=== PATIENT | male | born 1955 | race Caucasian/White ===

== ENCOUNTER → 2018-06-16 | Outpatient (CLI) | payer BC ==
[~2018-06-16] MED LIST: ASPI-319 PO; OXYC-57 PO; SIMV20TA2 PO; TAMS0.4C38 PO; TELM40TA PO
--- NOTE | 2018-06-16 10:25 | DIAGNOSTIC IMAGING REPORT ---
KUB CLINICAL HISTORY: N20.0 nephrocalcinosis COMPARISON STUDY: 10/21/2015. CT abdomen and pelvis 06/05/2018 FINDINGS: The soft tissues, psoas shadows, renal outlines and intestinal gas pattern appear normal. There is no evidence for bowel obstruction. 6 mm calcification lower pole left kidney unchanged. IMPRESSION: 6 mm calcification lower pole left kidney unchanged compared to the patient's prior CT study. Otherwise negative exam. The above report was generated using voice recognition software. It may contain grammatical, syntax or spelling errors. Electronically signed by: José Marcum M.D. 06/16/2018 10:23 AM Dictated Date/Time: 06/16/2018 10:22 AM
== END | disposition home or self-care (01) ==
LOC: C.RAD1850 10:08
PROVIDERS: ATTEND Urology
DX: N20.0 Calculus of kidney (principal)

== ENCOUNTER → 2018-06-26 | Outpatient (CLI) | payer BC ==
--- NOTE | 2018-06-26 16:12 | DIAGNOSTIC IMAGING REPORT ---
KUB CLINICAL HISTORY: Nephrolithiasis. FINDINGS: 2 AP supine abdominal radiographs are compared to study dated 06/16/2018 and correlated with abdominal CT dated 06/05/2018. There is a nonobstructed abdominal bowel gas pattern. There is no radiographic evidence of nephrolithiasis on today's examination. Numerous phleboliths are observed in the pelvis. The bony structures appear intact. IMPRESSION: There is no radiographic evidence of nephrolithiasis on today's examination. Electronically signed by: Mayco Jon M.D. 06/26/2018 4:11 PM Dictated Date/Time: 06/26/2018 4:08 PM
== END | disposition home or self-care (01) ==
LOC: C.RAD 14:43
PROVIDERS: ATTEND Urology
DX: N20.0 Calculus of kidney (principal)

== ENCOUNTER 2020-06-01 09:05 | Observation (INO) ==
[2020-06-01] MEDS ORDERED: ONDANSETRON INJ 2 MG/ML 2 ML VIAL IV STA (09:26)
[2020-06-01] MEDS ORDERED: SODIUM CHLORIDE 0.9% 500 ML IV SCH (09:30)
[2020-06-01] MEDS ORDERED: LORazepam 1 MG/2 ML VIAL IV STA (09:35)
[2020-06-01 09:45] LABS: Basophils # (auto) 0.04 K/uL (0-0.2); Basophils % (auto) 0.7 %; Eosinophils # (auto) 0.16 K/uL (0-0.5); Hematocrit (blood only) 38.5 % (42-52); Immature Granulocytes # (auto) 0.01 K/uL (0.00-0.02); Immature Granulocytes % (auto) 0.2 %; Lymphocytes # (auto) 1.48 K/uL (1.2-3.4); Lymphocytes % (auto) 27.7 %; Mean Corpuscular Hemoglobin 32.3 pg (25-34); Mean Corpuscular Hgb Conc 33.8 g/dL (32-36); Mean Corpuscular Volume 95.8 fL (80-100); Mean Platelet Volume 8.8 fL (7.4-10.4); Monocytes # (auto) 0.35 K/uL (0.11-0.59); Monocytes % (auto) 6.5 %; Neutrophils # (auto) 3.31 K/uL (1.4-6.5); Neutrophils % (auto) 61.9 %; Platelet Count 208 K/uL (130-400); RDW Coefficient of Variation 12.3 % (11.5-14.5); RDW Standard Deviation 43.3 fL (36.4-46.3); Red Blood Count 4.02 M/uL (4.7-6.1); White Blood Count 5.35 K/uL (4.8-10.8)
[2020-06-01 09:51] LABS: Alanine Aminotransferase 29 U/L (12-78); Albumin Level 3.7 gm/dl (3.4-5.0); Aspartate Aminotransferase 18 U/L (15-37); BUN Creatinine Ratio 24.8 (10-20); Blood Urea Nitrogen 22 mg/dl (7-18); Calcium 8.6 mg/dl (8.5-10.1); Carbon Dioxide 24 mmol/L (21-32); Chloride 110 mmol/L (98-107); Creatinine Clr Calc Pharmacy 108.9 ml/min; Est GFR (African American) 103.7; Est GFR (Non-African American) 89.5; Glucose 138 mg/dl (70-99); Lipase 162 U/L (73-393); Sodium 140 mmol/L (136-145)
[2020-06-01 09:56] LABS: Albumin Globulin Ratio 1.1 (0.9-2); Alkaline Phosphatase 80 U/L (45-117); Bilirubin,Total 0.7 mg/dl (0.2-1); Globulin 3.4 gm/dl (2.5-4.0); Total Protein 7.1 gm/dl (6.4-8.2); Troponin I < 0.015 ng/ml (0-0.045)
[2020-06-01] MEDS ORDERED: OPTIRAY 320 125ml IV PRN (10:42)
--- NOTE | 2020-06-01 10:58 | CT Scan Report ---
CT head/brain wo con CLINICAL HISTORY: 65 years-old Male with vertigo, consider cerebellar stroke. Acute strokelike sympt oms with vertigo. TECHNIQUE: Multiple axial CT images of the head were obtained without contrast. A dose lowering tech nique was utilized adhering to the principles of ALARA. COMPARISON: CTA head and neck of same day. FINDINGS: No acute intracranial hemorrhage, midline shift, intracranial mass, hydrocephalus, territorial ischem ia or abnormal extra-axial collection. Senescent calcifications of the right lentiform nucleus. Low-l caity cerebellar tonsils. The calvarium is intact. The paranasal sinuses, mastoid air cells, and middle ear cavities are clear . IMPRESSION: No acute intracranial abnormality. ACT 112: Negative or not required by law. The above report was generated using voice recognition software. It may contain grammatical, syntax o r spelling errors. Electronically signed by: Hair Ledesma M.D. 06/01/2020 10:56 AM
--- NOTE | 2020-06-01 11:05 | CT Scan Report ---
CT angio neck with con, CT angio head w con CLINICAL HISTORY: 65 years-old Male with stroke. Acute strokelike symptoms COMPARISON STUDY: Head CT of same day TECHNIQUE: Following the IV administration of 120 mL of Optiray 320, CT angiogram of the head and nec k was performed from the aortic arch to the skull apex. Images are reviewed in the axial, sagittal, a nd coronal planes. 3-D MIPS images are created and assessed. IV contrast was administered without com plication. All measurements were calculated based on NASCET criteria. A dose lowering technique was utilized adhering to the principles of ALARA. CT DOSE: 1243.99 mGy.cm FINDINGS: The opacified imaged pulmonary arterial tree is unremarkable. Three-vessel morphology of aortic arch demonstrates mild to moderate mixed plaque, notably at the origin of the left subclavian artery which appears patent. Patent common carotid arteries. Moderate mixed plaque of the carotid bulbs and proxi mal internal carotid arteries results in less than 50% stenosis bilaterally. Calcified plaque of the cavernous and supraclinoid segments without high-grade stenosis. Middle and anterior cerebral arterie s are patent with areas of mild multifocal luminal narrowing. Vertebral arteries are codominant and a re also widely patent. Basilar artery is patent. Mild to moderate focal area of luminal narrowing inv olves the P1 segment of the left posterior cerebral artery, image 69 series 5. origin of the ri ght posterior cerebral artery which also appears patent with areas of mild luminal narrowing. No aneu rysm, dissection, high-grade stenosis or proximal branch occlusion. Cerebral venous sinuses are paten t. Slightly hypoplastic right transverse sinus. No abnormal intracranial enhancement. Subpleural bleb formation of the lung apices. No pneumothorax. Nonspecific mildly prominent paratracheal lymph nodes. Subcentimeter complex left thyroid nodule. IMPRESSION: 1. No aneurysm, dissection, high-grade stenosis or proximal branch occlusion identified. 2. Atherosclerotic vascular disease with multifocal predominantly mild and mild to moderate luminal n arrowing as detailed above. ACT 112: Negative or not required by law. The above report was generated using voice recognition software. It may contain grammatical, syntax o r spelling errors. Electronically signed by: Hair Ledesma M.D. 06/01/2020 11:04 AM
[2020-06-01] MEDS ORDERED: MECLIZINE HCL 25 MG TAB PO STA (12:28)
[2020-06-01] MEDS ORDERED: methylPREDNISolone 125 MG/2 ML VIAL IV STA (12:28)
[2020-06-01] MEDS ORDERED: SODIUM CHLORIDE 0.9% 1000ML 1,000 ML IV SCH (12:45)
--- NOTE | 2020-06-01 12:50 | History & Physical Report ---
Date of Service June 01, 2020 Assessment & Plan (1) Vertigo: Patient be observed in our facility. Patient given scopolamine. Meclizine as needed and Lorazepam. He will be continued with hydration and be given antiemetics as needed. MRI scan will be undertaken to evaluate for small areas of stroke which could be associated vertigo that may not be seen on initial CT scan CT head,CT angiogram brain 06/01/2020 IMPRESSION: 1. No aneurysm, dissection, high-grade stenosis or proximal branch occlusion identified. 2. Atherosclerotic vascular disease with multifocal predominantly mild and mild to moderate luminal narrowing (2) Hypertension: Patient be continued on telmisartan or pharmacy appropriate substitute. Secondary disease prevention aspirin simvastatin will be continued (3) Dyslipidemia: Patient is typically on simvastatin History of Present Illness Primary Care Provider: Miguel Bolivar DO Patient presented after having vertiginous symptoms after making breakfast this morning. There is vertiginous symptoms have been persistent and significant while in the ER to the point where he is vomited. The ER the patient was given lorazepam meclizine methylprednisolone and Zofran as well as IV fluids without help. Patient cannot stand safely and will be observed in our facility. He is typically on very few home medications denies recent illness or trauma Allergies Allergy/AdvReac Type Severity Reaction Status Date / Time Ada AdvReac Unknown Uncoded 06/01/20 09:46 Home Medications Home Medications Medication Instructions Recorded Confirmed Type aspirin [Aspirin Low Dose] 81 mg PO DAILY 06/01/20 06/01/20 History cetirizine [Zyrtec] 10 mg PO DAILY PRN 06/01/20 06/01/20 History simvastatin 20 mg PO DAILY 06/01/20 06/01/20 History telmisartan 40 mg PO DAILY 06/01/20 06/01/20 History Past Med/Surg History Medical History (Updated 06/01/20 @ 12:47 by Clif Copeland MD) Dyslipidemia Social History Preferred Language: Qatari Communication Ability: Effective Ceiling Cleaner Required: No Beliefs That Will Affect Care: None Current Living Situation: Spouse Other Information That Helps Us Care for You: No Feels Safe at Home: Yes Safety Concerns: Feels Safe At This Time Smoking Status: Never smoker Hx Alcohol Use: No Hx Substance Use: No Review of Systems Review of Systems: Mild distress and fatigue no headache, blurry or double vision no speech or swallowing issues no chest pain, pressure or palpitations no shortness of breath, cough or wheezes no abdominal pain, nausea or vomiting, diarrhea or constipation no dysuria, hematuria or frequency no focal joint pain or swelling no back pain, CVA tenderness or radicular pain no bruising, bleeding or rashes no focal signs of weakness or numbness or altered sensation no complaints or anxiety or depression. Physical Exam Physical Exam: The patient appeared well nourished and normally developed. Vital signs as documented. Head exam is normocephalic atraumatic no scleral icterus Neck is without JVD, thyromegaly, or carotid bruits. Lungs are clear to auscultation, no focal loss of breath sounds Cardiac exam, Rhythm is regular.. No murmurs, rubs or gallops. Abdominal exam reveals normal bowel sounds, soft non tender, no masses Extremities are nonedematous and both pedal pulses are normal. Neurologic exam is alert and oriented, no focal loss of strength or sensation Skin is without bruises or rashes Psychologically is without concerns for anxiety or depression Results & Data Results & Data ([facility]) Vital Signs (Past 12 Hours) Vital Signs Temp Pulse Pulse Resp BP BP Pulse Ox 06/01/20 12:41 59 L 18 146/73 H 96 06/01/20 11:50 58 L 18 117/67 98 06/01/20 10:54 64 16 141/85 H 97 06/01/20 09:09 98.2 F 56 L 18 134/80 100 PG Care Time/CCT Total # of Minutes Spent Total Time Spent with Patient: Total time spent is greater than 50% in coordination of care (as documented) at patient's floor/unit and/or counseling patient: Coding Level of Care Code 18437 OBS Care - Level 3 Diagnoses Vertigo R42 Hypertension I10 Dyslipidemia E78.5
--- NOTE | 2020-06-01 12:51 | History & Physical Report ---
Date of Service June 01, 2020 Assessment & Plan (1) Vertigo: Patient be observed in our facility. Patient given scopolamine. Meclizine as needed and Lorazepam. He will be continued with hydration and be given antiemetics as needed. 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 He does work outside frequently. He is never been tested or treated for Lyme disease. We will add a Lyme titer to his laboratories in the morning as well as morning lipids CT head,CT angiogram brain 06/01/2020 IMPRESSION: 1. No aneurysm, dissection, high-grade stenosis or proximal branch occlusion identified. 2. Atherosclerotic vascular disease with multifocal predominantly mild and mild to moderate luminal narrowing (2) Hypertension: Patient be continued on telmisartan or pharmacy appropriate substitute. Secondary disease prevention aspirin simvastatin will be continued (3) Dyslipidemia: Patient is typically on simvastatin (4) DVT prophylaxis: DVT prevention is early ambulation and SCDs Patient is a full code History of Present Illness Primary Care Provider: Miguel Bolivar DO Patient presented after having vertiginous symptoms after making breakfast this morning. The patient woke up in normal condition about 30 minutes later he was making breakfast actually set at breakfast table and then began feeling warm w ith a warm flushed and nauseous with ensuing vomiting when he walked to go to the bathroom to vomit he noticed the room was spinning. There is vertiginous symptoms have been persistent and significant while in the ER to the point where he is vomited. The ER the patient was given lorazepam meclizine methylprednisolone and Zofran as well as IV fluids without help. Patient cannot stand safely and will be observed in our facility. He is typically on very few home medications denies recent illness or trauma. The family recently had a where people visited from out of town but everyone employed social distancing and wear a mask known was sick at the event Allergies Allergy/AdvReac Type Severity Reaction Status Date / Time Ada AdvReac Unknown Uncoded 06/01/20 09:46 Home Medications Home Medications Medication Instructions Recorded Confirmed Type aspirin [Aspirin Low Dose] 81 mg PO DAILY 06/01/20 06/01/20 History cetirizine [Zyrtec] 10 mg PO DAILY PRN 06/01/20 06/01/20 History simvastatin 20 mg PO DAILY 06/01/20 06/01/20 History telmisartan 40 mg PO DAILY 06/01/20 06/01/20 History Past Med/Surg History Social History Preferred Language: Iraqi Communication Ability: Effective Mopper Required: No Beliefs That Will Affect Care: None Current Living Situation: Spouse Other Information That Helps Us Care for You: No Feels Safe at Home: Yes Safety Concerns: Feels Safe At This Time Smoking Status: Never smoker Hx Alcohol Use: No Hx Substance Use: No Review of Systems Review of Systems: Mild distress and fatigue no headache, blurry or double vision He does have the sensation of spinning when he moves his head too fast no speech or swallowing issues no chest pain, pressure or palpitations no shortness of breath, cough or wheezes no abdominal pain, nausea or vomiting, diarrhea or constipation no dysuria, hematuria or frequency no focal joint pain or swelling no back pain, CVA tenderness or radicular pain no bruising, bleeding or rashes no focal signs of weakness or numbness or altered sensation no complaints or anxiety or depression. Physical Exam Physical Exam: The patient appeared well nourished and normally developed. Vital signs as documented. Head exam is normocephalic atraumatic no scleral icterus Nystagmus is noted laterally looking to the left and to the right and symptoms are reproduced with head movement Neck is without JVD, thyromegaly, or carotid bruits. Lungs are clear to auscultation, no focal loss of breath sounds Cardiac exam, Rhythm is regular.. No murmurs, rubs or gallops. Abdominal exam reveals normal bowel sounds, soft non tender, no masses Extremities are nonedematous and both pedal pulses are normal. Neurologic exam is alert and oriented, no focal loss of strength or sensation Skin is without bruises or rashes Psychologically is without concerns for anxiety or depression Results & Data Results & Data ([facility]) Vital Signs (Past 12 Hours) Vital Signs Temp Pulse Pulse Resp BP BP Pulse Ox 06/01/20 12:41 59 L 18 146/73 H 96 06/01/20 11:50 58 L 18 117/67 98 06/01/20 10:54 64 16 141/85 H 97 06/01/20 09:09 98.2 F 56 L 18 134/80 100 PG Care Time/CCT Total # of Minutes Spent Total Time Spent with Patient: Total time spent is greater than 50% in coordination of care (as documented) at patient's floor/unit and/or counseling patient: Coding Level of Care Code 14101 OBS Care - Level 2 Diagnoses Vertigo R42 Hypertension I10 Dyslipidemia E78.5 DVT prophylaxis Z29.9
[2020-06-01] MEDS ORDERED: PROMETHAZINE HCL 12.5 MG in SODIUM CHLORIDE 0.9% 50 ML IV PRN (14:11)
[2020-06-01] MEDS ORDERED: ONDANSETRON INJ 2 MG/ML 2 ML VIAL IV PRN (14:11)
[2020-06-01] MEDS ORDERED: LORazepam 0.5 MG/1 ML VIAL IV PRN (14:11)
[2020-06-01] MEDS: SODIUM CHLORIDE 0.9% 1000ML 1,000 ML IV SCH ×2 (14:20→22:32)
--- NOTE | 2020-06-01 14:22 | Emergency Department Note ---
History of Present Illness General Chief complaint: Vomiting Stated complaint: dizzy/vomit Time Seen by Provider: 06/01/20 09:21 Source: patient, family, EMS and RN notes reviewed Mode of arrival: EMS Limitations: no limitations History of Present Illness Provider complaint: Dizzy, vomiting Maximum Pain Intensity: 0 This patient is a 65-year-old male who presents to the emergency department with complaints of dizziness nausea and vomiting. Patient states he made himself breakfast and was in his usual state of health this morning. He sat down and developed a flushed feeling and nausea. He went to the bathroom and vomited. He had a spinning sensation and dizziness thereafter. Patient's called the ambulance and he was transported to our facility. The patient denies any histo ry of vertigo. He denies any recent illnesses. He denies any head injury, chest pain, shortness of breath. Home Medications Home Medications Medication Instructions Recorded Confirmed Type aspirin [Aspirin Low Dose] 81 mg PO DAILY 06/01/20 06/01/20 History cetirizine [Zyrtec] 10 mg PO DAILY PRN 06/01/20 06/01/20 History simvastatin 20 mg PO DAILY 06/01/20 06/01/20 History telmisartan 40 mg PO DAILY 06/01/20 06/01/20 History Allergies Allergy/AdvReac Type Severity Reaction Status Date / Time Ada AdvReac Unknown Uncoded 06/01/20 09:46 Past Med/Surg History Medical History Dyslipidemia Social History Preferred Language: Tajik Communication Ability: Effective Oven Attendant Required: No Beliefs That Will Affect Care: None Current Living Situation: Spouse Other Information That Helps Us Care for You: No Feels Safe at Home: Yes Safety Concerns: Feels Safe At This Time Smoking Status: Never smoker Hx Alcohol Use: No Hx Substance Use: No Review of Systems See HPI for pertinent positives & negatives. and A total of 10 systems reviewed and were otherwise negative Physical Exam Vital Signs Vital Signs - 24 hr 06/01/20 09:09 06/01/20 10:54 06/01/20 11:50 Temperature 36.8 C Temperature Source Oral Pulse Rate 56 L Pulse Rate [Finger] 64 58 L Respiratory Rate 18 16 18 Respiratory Effort / Characteristics Non-Labored Non-Labored Non-Labored Respiratory Depth Normal Normal Normal Blood Pressure 134/80 Blood Pressure [Right Arm] 141/85 H 117/67 Blood Pressure Mean 98 Blood Pressure Mean [Right Arm] 103 83 Pulse Oximetry 100 97 98 Oxygen Delivery Method Room Air Room Air Room Air Sepsis Recent Fever Within 48 Hours No Sepsis New/Unexplained Change in Mental Status No Sepsis Action Taken by Nursing No Action Required 06/01/20 12:41 Temperature Temperature Source Pulse Rate Pulse Rate [Finger] 59 L Respiratory Rate 18 Respiratory Effort / Characteristics Respiratory Depth Blood Pressure Blood Pressure [Right Arm] 146/73 H Blood Pressure Mean Blood Pressure Mean [Right Arm] 97 Pulse Oximetry 96 Oxygen Delivery Method Room Air Sepsis Recent Fever Within 48 Hours Sepsis New/Unexplained Change in Mental Status Sepsis Action Taken by Nursing Vital signs reviewed. General: Well-appearing 65 yo male, in no significant distress. HEENT: No scleral icterus, PERRLA, neck supple. Atraumatic. Cardiovascular: Regular rate and rhythm, no extra sounds. Pulmonary: Clear to auscultation bilaterally, normal work of breathing. Abdomen: Soft, nontender, nondistended, positive bowel sounds. Musculoskeletal: Atraumatic, no peripheral edema. Neurologic: Patient awake alert and oriented x 3, positive horizontal nystagmus, equal strength in all 4 extremities. Cranial nerves 2 through 12 grossly intact. Skin: Warm, dry, no rash Course Administered Medications Discontinued Medications Sodium Chloride (Nss) 500 mls @ 999 mls/hr IV .Q31M NATHAN Stop: 06/01/20 10:00 Last Infusion: 06/01/20 10:13 Dose: 0 mls/hr Documented by: [id number] Admin: 06/01/20 09:42 Dose: 999 mls/hr Documented by: [id number] Lorazepam (Ativan) 1 mg in 2 mls @ 2 mls/min IV NOW STA Stop: 06/01/20 09:36 Last Admin: 06/01/20 09:42 Dose: 2 mls/min Documented by: [id number] Ioversol (Optiray 320 125ml) 120 ml IV ONCE PRN PRN Reason: Interaction Checking Stop: 06/05/20 10:41 Last Admin: 06/01/20 10:42 Dose: 120 ml Documented by: [id number] Meclizine HCl (Antivert) 25 mg PO NOW STA Stop: 06/01/20 12:29 Last Admin: 06/01/20 12:37 Dose: 25 mg Documented by: [id number] Methylprednisolone (Solumedrol) 125 mg IV NOW STA Stop: 06/01/20 12:29 Last Admin: 06/01/20 12:37 Dose: 125 mg Documented by: [id number] Ondansetron HCl (Zofran) 4 mg IV NOW STA Stop: 06/01/20 09:27 Last Admin: 06/01/20 09:40 Dose: 4 mg Documented by: [id number] Medical Decision Making Differential Diagnosis Differential diagnosis: Etiologies such as benign positional vertigo, labrynthitis, dehydration, hypovolemia, anemia, tumor, infection, hypoglycemia, electrolyte abnormalities, cardiac sources, toxicological sources, central neurologic process, as well as others were entertained. Medical Records Attestation: I reviewed the patient's medical records. Home Medications Current Medication List: was personally reviewed by me Laboratory Data Attestation: I reviewed the patient's lab results. Result diagrams: 06/01/20 09:13 06/01/20 09:13 Lab Results 06/01/20 06/01/20 Range/Units 09:13 09:13 WBC 5.35 (4.8-10.8) K/uL RBC 4.02 L (4.7-6.1) M/uL Hgb 13.0 L (14.0-18.0) g/dL Hct 38.5 L (42-52) % MCV 95.8 (80-100) fL MCH 32.3 (25-34) pg MCHC 33.8 (32-36) g/dL RDW Std Deviation 43.3 (36.4-46.3) fL RDW Coeff of Kumar 12.3 (11.5-14.5) % Plt Count 208 (130-400) K/uL MPV 8.8 (7.4-10.4) fL Immature Gran % (Auto) 0.2 % Neut % (Auto) 61.9 % Lymph % (Auto) 27.7 % [place] % (Auto) 6.5 % Eos % (Auto) 3.0 % Baso % (Auto) 0.7 % Neut # (Auto) 3.31 (1.4-6.5) K/uL Lymph # (Auto) 1.48 (1.2-3.4) K/uL [place] # (Auto) 0.35 (0.11-0.59) K/uL Eos # (Auto) 0.16 (0-0.5) K/uL Baso # (Auto) 0.04 (0-0.2) K/uL Immature Gran # (Auto) 0.01 (0.00-0.02) K/uL Sodium 140 (136-145) mmol/L Potassium 4.0 (3.5-5.1) mmol/L Chloride 110 H (98-107) mmol/L Carbon Dioxide 24 (21-32) mmol/L Anion Gap 6.0 (3-11) BUN 22 H (7-18) mg/dl Creatinine 0.88 (0.6-1.4) mg/dl Est Cr Clr Drug Dosing 108.9 ml/min Est GFR ( Amer) 103.7 Est GFR (Non-Af Amer) 89.5 BUN/Creatinine Ratio 24.8 H (10-20) Glucose 138 H (70-99) mg/dl Calcium 8.6 (8.5-10.1) mg/dl Total Bilirubin 0.7 (0.2-1) mg/dl AST 18 (15-37) U/L ALT 29 (12-78) U/L Alkaline Phosphatase 80 (45-117) U/L Troponin I < 0.015 (0-0.045) ng/ml Total Protein 7.1 (6.4-8.2) gm/dl Albumin 3.7 (3.4-5.0) gm/dl Globulin 3.4 (2.5-4.0) gm/dl Albumin/Globulin Ratio 1.1 (0.9-2) Lipase 162 (73-393) U/L Imaging Data Radiologist's Impression: CT head/brain wo con CLINICAL HISTORY: 65 years-old Male with vertigo, consider cerebellar stroke. Acute strokelike symptoms with vertigo. TECHNIQUE: Multiple axial CT images of the head were obtained without contrast. A dose lowering technique was utilized adhering to the principles of ALARA. COMPARISON: CTA head and neck of same day. FINDINGS: No acute intracranial hemorrhage, midline shift, intracranial mass, hydrocephalus, territorial ischemia or abnormal extra-axial collection. Senescent calcifications of the right lentiform nucleus. Low-lying cerebellar tonsils. The calvarium is intact. The paranasal sinuses, mastoid air cells, and middle ear cavities are clear. IMPRESSION: No acute intracranial abnormality. ACT 112: Negative or not required by law. The above report was generated using voice recognition software. It may contain grammatical, syntax or spelling errors. Electronically signed by: Hair Ledesma M.D. 06/01/2020 10:56 AM Dictated: 06/01/20 1052 Transcribed: 06/01/[address] angio neck with con, CT angio head w con CLINICAL HISTORY: 65 years-old Male with stroke. Acute strokelike symptoms COMPARISON STUDY: Head CT of same day TECHNIQUE: Following the IV administration of 120 mL of Optiray 320, CT angiogram of the head and neck was performed from the aortic arch to the skull apex. Images are reviewed in the axial, sagittal, and coronal planes. 3-D MIPS images are created and assessed. IV contrast was administered without complication. All measurements were calculated based on NASCET criteria. A dose lowering technique was utilized adhering to the principles of ALARA. CT DOSE: 1243.99 mGy.cm FINDINGS: The opacified imaged pulmonary arterial tree is unremarkable. Three-vessel morphology of aortic arch demonstrates mild to moderate mixed plaque, notably at the origin of the left subclavian artery which appears patent. Patent common carotid arteries. Moderate mixed plaque of the carotid bulbs and proximal internal carotid arteries results in less than 50% stenosis bilaterally. Calcified plaque of the cavernous and supraclinoid segments without high-grade stenosis. Middle and anterior cerebral arteries are patent with areas of mild multifocal luminal narrowing. Vertebral arteries are codominant and are also widely patent. Basilar artery is patent. Mild to moderate focal area of luminal narrowing involves the P1 segment of the left posterior cerebral artery, image 69 series 5. origin of the right posterior cerebral artery which also appears patent with areas of mild luminal narrowing. No aneurysm, dissection, high-grade stenosis or proximal branch occlusion. Cerebral venous sinuses are patent. Slightly hypoplastic right transverse sinus. No abnormal intracranial enhancement. Subpleural bleb formation of the lung apices. No pneumothorax. Nonspecific mildly prominent paratracheal lymph nodes. Subcentimeter complex left thyroid nodule. IMPRESSION: 1. No aneurysm, dissection, high-grade stenosis or proximal branch occlusion identified. 2. Atherosclerotic vascular disease with multifocal predominantly mild and mild to moderate luminal narrowing as detailed above. ACT 112: Negative or not required by law. The above report was generated using voice recognition software. It may contain grammatical, syntax or spelling errors. Electronically signed by: Hair Ledesma M.D. 06/01/2020 11:04 AM Dictated: 06/01/20 1057 Transcribed: 06/01/[address] angio neck with con, CT angio head w con CLINICAL HISTORY: 65 years-old Male with stroke. Acute strokelike symptoms COMPARISON STUDY: Head CT of same day TECHNIQUE: Following the IV administration of 120 mL of Optiray 320, CT angiogram of the head and neck was performed from the aortic arch to the skull apex. Images are reviewed in the axial, sagittal, and coronal planes. 3-D MIPS images are created and assessed. IV contrast was administered without complication. All measurements were calculated based on NASCET criteria. A dose lowering technique was utilized adhering to the principles of ALARA. CT DOSE: 1243.99 mGy.cm FINDINGS: The opacified imaged pulmonary arterial tree is unremarkable. Three-vessel morphology of aortic arch demonstrates mild to moderate mixed plaque, notably at the origin of the left subclavian artery which appears patent. Patent common carotid arteries. Moderate mixed plaque of the carotid bulbs and proximal internal carotid arteries results in less than 50% stenosis bilaterally. Calcified plaque of the cavernous and supraclinoid segments without high-grade stenosis. Middle and anterior cerebral arteries are patent with areas of mild multifocal luminal narrowing. Vertebral arteries are codominant and are also widely patent. Basilar artery is patent. Mild to moderate focal area of luminal narrowing involves the P1 segment of the left posterior cerebral artery, image 69 series 5. origin of the right posterior cerebral artery which also appears patent with areas of mild luminal narrowing. No aneurysm, dissection, high-grade stenosis or proximal branch occlusion. Cerebral venous sinuses are patent. Slightly hypoplastic right transverse sinus. No abnormal intracranial enhancement. Subpleural bleb formation of the lung apices. No pneumothorax. Nonspecific mildly prominent paratracheal lymph nodes. Subcentimeter complex left thyroid nodule. IMPRESSION: 1. No aneurysm, dissection, high-grade stenosis or proximal branch occlusion identified. 2. Atherosclerotic vascular disease with multifocal predominantly mild and mild to moderate luminal narrowing as detailed above. ACT 112: Negative or not required by law. The above report was generated using voice recognition software. It may contain grammatical, syntax or spelling errors. Electronically signed by: Hair Ledesma M.D. 06/01/2020 11:04 AM Dictated: 06/01/201056 Transcribed: 06/01/201056 ECG Data Attestation: I personally reviewed and interpreted this ECG as follows: Indication: + vomiting and + other (vertigo) Rate (beats per minute): 53 Rhythm: + sinus bradycardia ECG Intervals/blocks: + Normal QT ECG [place]: + Normal ECG ST segments: + Normal ST segments ECG Findings: no PACs and no PVCs Blood Pressure Blood Pressure Findings: Elevated blood pressure Blood Pressure Disposition: elevated BP felt to be situational MDM Narrative This patient was evaluated and appeared to be in some discomfort. Patient's physical examination is consistent with a benign positional vertigo however with the lack of history and sudden onset, cerebellar infarct is concerning. Patient began retching shortly after his physical exam. IV access was obtained and laboratory work was drawn. The patient was given IV Zofran and IV Ativan. CTA of the head and neck was performed and is read as above. There is no evidence of acute infarct. Study is significant for atherosclerotic vascular disease with multifocal predominantly mild and mild to moderate luminal narrowing. On my reevaluation of the patient, he was feeling improved and tolerated a p.o. fluid trial. Nursing attempted to stand him at the bedside however he became acutely dizzy and lost his balance. Patient was then given 125 mg of IV Solu- Medrol, 25 mg of p.o. meclizine and IV normal saline solution. Case was discussed with Dr. Copeland of the hospitalist service who will evaluate the patient for further management. Patient and are aware of the plan and agree. Impression & Plan Vertigo Discharge Plan Visit Data *Final* Discharge Date/Time: 06/01/20 13:56 Chief Complaint: Vomiting Stated Complaint: dizzy/vomit ED Provider: Keyana Mendez Discharge Problem: Vertigo Patient Disposition: Admitted As Inpatient Discharge Instructions Interventions: ED Discharge Assessment Last Done: 06/01/20 13:56
[2020-06-01] MEDS ORDERED: Nursing to Pharmacy Communication SCH (14:30)
[2020-06-01] MEDS: MECLIZINE HCL 25 MG TAB PO SCH ×2 (14:43→20:15)
[2020-06-01] MEDS ORDERED: SCOPOLAMINE 1.5 MG TDSY TD SCH (15:00)
[2020-06-01] MEDS: CHECK SCOPOLAMINE PATCH PLACEMENT SCH (15:52)
[2020-06-01] MEDS ORDERED: ACETAMINOPHEN 325 MG TAB PO PRN (19:46)
[2020-06-02] MEDS: CHECK SCOPOLAMINE PATCH PLACEMENT SCH ×2 (00:32→07:32)
[2020-06-02 06:51] LABS: BUN Creatinine Ratio 19.6 (10-20); Calcium 8.5 mg/dl (8.5-10.1); Creatinine Clr Calc Pharmacy 114.1 ml/min; Est GFR (African American) 105.7; Est GFR (Non-African American) 91.2; Potassium 4.3 mmol/L (3.5-5.1)
--- NOTE | 2020-06-02 07:26 | Magnetic Resonance Report ---
MRI OF THE BRAIN WITHOUT CONTRAST CLINICAL HISTORY: Evaluate for small cva, brainstem intractable n/v. COMPARISON STUDY: Head CT and CTA of the head June 01, 2020. TECHNIQUE: Utilizing a 1.5 Yolanda magnet and dedicated coil, multiplanar, multiecho imaging of the bra in was performed without IV contrast. FINDINGS: There are no foci of restricted diffusion to suggest acute infarct. No acute intracranial h emorrhage, midline shift or mass effect is present. Ventricular system is normal. Basilar cisterns ar e patent. There are no extra axial collections. No intracranial masses identified on this unenhanced examination. Flow-voids for the major intracranial vessels are present. There is no significant paren chymal signal abnormality. Calvarial signal is normal. IMPRESSION: No acute intracranial findings. Unremarkable unenhanced MRI of the brain. ACT 112: Negative or not required by law. Electronically signed by: Kel Chambers M.D. 06/02/2020 7:24 AM
[2020-06-02] MEDS: SODIUM CHLORIDE 0.9% 1000ML 1,000 ML IV SCH (07:33)
[2020-06-02 08:55] LABS: Lyme Ab IgG w/WB Rflx Negative (Negative); Lyme Ab IgM w/WB Rflx Negative (Negative)
[2020-06-02] MEDS ORDERED: SIMVASTATIN 20 MG TAB PO SCH (09:00)
[2020-06-02] MEDS ORDERED: TELMISARTAN 40 MG TAB PO SCH (09:00)
[2020-06-02] MEDS ORDERED: ASPIRIN 81 MG ECTAB PO SCH (09:00)
--- NOTE | 2020-06-02 15:39 | Discharge Summary ---
Date of Service June 02, 2020 Admission HPI Per Admitting Provider Patient presented after having vertiginous symptoms after making breakfast this morning. The patient woke up in normal condition about 30 minutes later he was making breakfast actually set at breakfast table and then began feeling warm with a warm flushed and nauseous with ensuing vomiting when he walked to go to the bathroom to vomit he noticed the room was spinning. There is vertiginous symptoms have been persistent and significant while in the ER to the point where he is vomited. The ER the patient was given lorazepam meclizine methylprednisolone and Zofran as well as IV fluids without help. Patient cannot stand safely and will be observed in our facility. He is typically on very few home medications denies recent illness or trauma. The family recently had a where people visited from out of town but everyone employed social distancing and wear a mask known was sick at the event Principal Diagnosis Acute vertigo, likely labrynthitis Discharge Exam Constitutional WD/WN, vitals as above Eyes PERRL, conjunctivae normal, anicteric sclerae ENMT external ear and nose normal, oropharynx normal Neck trachea midline, no thyromegaly Respiratory normal respiratory effort, lungs clear to auscultation Cardiovascular RRR, no murmur, no edema Gastrointestinal (Abdomen) normal bowel sounds, soft, nontender, no hepatosplenomegaly Musculoskeletal no cyanosis or clubbing, extremities motor strength 5/5 Skin no rashes, warm and dry Neurologic patellar DTR's 2+ bilat, sensation intact and PERRL, EOMI, accommodation nl, no face palsy, no dysarthria Psychiatric A+Ox3, euthymic affect Lymphatic no cervical or axillary lymphadenopathy Discharge Data Allergies Allergy/AdvReac Type Severity Reaction Status Date / Time Iodinated Contrast Media Allergy Unknown Verified 06/01/20 14:27 Ada AdvReac Unknown Uncoded 06/01/20 09:46 Consultations 06/01/20 13:08 ED Decision to Admit Stat Ordered Studies 06/01/20 09:36 CT head/brain wo con Stat 06/01/20 09:37 CT angio head w con Stat CT angio neck with con Stat 06/01/20 14:11 MR brain wo con Routine Hospital Course (1) Vertigo: Patient be observed in our facility. Patient given scopolamine. Meclizine as needed and Lorazepam. He will be continued with hydration and be given antiemetics as needed. MRI brain: no evidence of stroke or tumor that would explain the symptoms CT head,CT angiogram brain 06/01/2020 IMPRESSION: 1. No aneurysm, dissection, high-grade stenosis or proximal branch occlusion identified. 2. Atherosclerotic vascular disease with multifocal predominantly mild and mild to moderate luminal narrowing ear exam: TM normal, no signs of otitis media, no obvious fluid behind either ear no hearing loss on exam, does not complain of hearing loss evaluated by physical therapy, symptoms could NOT be reproduced with Lew maneuvers, thus benign positional vertigo highly unlikely given the above work up, most logical explanation would be acute labrynthitis, perhaps viral infection symptoms improved greatly will send home on Scopolamine patch for two more days, then remove, can use Meclizine PRN follow up with PCP discussed with patient and , all questions answered (2) Hypertension: Patient be continued on telmisartan Secondary disease prevention aspirin simvastatin will be continued (3) Dyslipidemia: Patient is typically on simvastatin Total Time Total Time Spent Total Time Spent (In Minutes): 31 minutes Total Time Includes: Examination of the Patient, Discharge Planning, Medication Reconciliation and Communication With Other Providers (physical therapy) Discharge Plan Discharge Items Patient Disposition: Home - Self-Care Reason For Visit: INTRACTABLE VERTIGO Discharge Diagnosis: Acute vertigo Condition on Discharge: Good Goals: use meclizine as needed, slowly increase activity as tolerated follow up with Dr. Bolivar Activity: Per Instructions section Lifting: Gradually increase as tolerated Bathing: No limitations Sexual Activity: When tolerated Exercise/Sports: Gradually increase as tolerated Driving/Machine Use: don't drive for one week Weightbearing: Full weightbearing Non-emergency contact: Primary Care Provider Call non-emergency contact if: you have any medication questions and your symptoms worsen Follow-up/Referrals: Miguel Bolivar, [Primary Care Provider] - (one week) Diet: Heart Healthy Addtl Attending Provider Instructions: Medications: - SCOPOLAMINE: leave patch on until Tuesday at noon, then you can remove and discard - MECLIZINE: take 25mg (two tablets) as needed for any vertigo, can take with the scopolamine patch, can take every 8 hours Vertigo, dizziness MRI brain negative for tumor or stroke Lew maneuvers did not reproduce symptoms which argues strongly against Benign positional vertigo no ringing in ears, no hearing loss, normal inner ear exam argues against Meniere's disease most likely etiology is labrynthitis which is self limiting, could be a viral infection recommend treating symptoms as needed, getting rest, stay well hydrated please follow up with Dr. Bolivar in one week Pending Studies at Discharge: No Stand-Alone Forms: My [facility], Smoking Cessation Medications and DC Order Prescriptions: New scopolamine base [Transderm-Scop] 1 mg over 3 days Patch 3 Day 1.5 mg transdermal Q72H Qty: 1 RF: 0 meclizine 12.5 mg tablet 25 mg PO TID PRN (Reason: dizziness) Qty: 20 RF: 1 Continued cetirizine [Zyrtec] 10 mg Tablet 10 mg PO DAILY PRN (Reason: Allergy Symptoms) RF: 0 aspirin [Aspirin Low Dose] 81 mg Tablet,Delayed Release (Dr/Ec) 81 mg PO DAILY RF: 0 simvastatin 20 mg tablet 20 mg PO DAILY RF: 0 telmisartan 40 mg tablet 40 mg PO DAILY RF: 0 Discharge Orders: Discharge Order (Routine); Ordered 06/02/20 Ordered By: Trent Menezes Admission Data Admit Date/Time: 06/01/20 12:55 Attending Provider: Trent Menezes Admit Provider: Clif Copeland Primary Care Provider: Miguel Bolivar Other Providers: Clif Copeland Other Interventions: Discharge Summary Assessment (RN) Last Done: 06/02/20 16:45 DC Date/Time DO NOT enter until pt leaves facility: 06/02/20 17:31 Coding Level of Care Code 63770 OBS Care - Discharge Diagnoses Vertigo R42 Hypertension I10 Dyslipidemia E78.5
--- NOTE | 2020-06-03 05:49 | Electrocardiogram Report ---
Test Reason : Blood Pressure : / mmHG Vent. Rate : 053 BPM Atrial Rate : 053 BPM P-R Int : 162 ms QRS Dur : 086 ms QT Int : 484 ms P-R-T Axes : 024 036 039 degrees QTc Int : 454 ms Sinus bradycardia Otherwise normal ECG When compared with ECG of 07-JUN-2018 12:08, Premature ventricular complexes are no longer Present Confirmed by Reyes Bloom ([id number]) on 06/03/2020 5:49:47 AM Referred By: REFERRED SELF Confirmed By:Reyes Bloom
== END 2020-06-02 17:31 | disposition home or self-care (01) ==
LOC: ED 09:05 → 2W 09:05 → SUATTDRO 12:55 → 2W 13:56

== ENCOUNTER 2023-10-28 09:45 | Observation (INO) ==
--- NOTE | 2023-10-12 10:20 | PAT Medication Instructions ---
Medication Instructions Date of Service October 12, 2023 Home Medications Medication Instructions Recorded meclizine 12.5 mg tablet 25 mg (2 x 12.5 mg) PO TID PRN 06/02/20 dizziness #20 tabs aspirin 81 mg tablet,delayed release (Tessa Low Dose Aspirin) 81 mg PO DAILY cetirizine 10 mg tablet (Zyrtec) 10 mg PO DAILY PRN Allergy Symptoms telmisartan 40 mg tablet 40 mg PO QAM meclizine 12.5 mg tablet 25 mg (2 x 12.5 mg) PO TID PRN dizziness atorvastatin 40 mg tablet 40 mg PO HS melatonin 10 mg tablet 10 mg PO HS PRN Sleep DO NOT take the morning of surgery cetirizine 10 mg tablet (Zyrtec) 10 mg PO DAILY PRN Allergy Symptoms telmisartan 40 mg tablet 40 mg PO QAM Take morning of surgery With a small sip of water, OTHERWISE NOTHING TO EAT OR DRINK AFTER MIDNIGHT: aspirin 81 mg tablet,delayed release (Tessa Low Dose Aspirin) 81 mg PO DAILY (continue as normal unless told otherwise by surgeon) meclizine 12.5 mg tablet 25 mg (2 x 12.5 mg) PO TID PRN dizziness (if needed) Take evening before surgery cetirizine 10 mg tablet (Zyrtec) 10 mg PO DAILY PRN Allergy Symptoms (if needed) meclizine 12.5 mg tablet 25 mg (2 x 12.5 mg) PO TID PRN dizziness (if needed) atorvastatin 40 mg tablet 40 mg PO HS melatonin 10 mg tablet 10 mg PO HS PRN Sleep (if needed) Other Notes If you have any questions please call us at [phone] or [phone] or [phone] or [phone]
--- NOTE | 2023-10-18 09:11 | Anesthesiology Consultation ---
Date of Service October 18, 2023 Assessment & Plan (1) Encounter for pre-operative examination: - Infectious disease screening: Per assessment on 10/18/23: No known infectious disease contacts or current infectious disease symptoms. No noted Covid positive test result in past 90 days. - Outpatient joint assessment: Pt currently scheduled for inpatient pathway. If surgeon requests review for outpatient joint pathway, patient is an acceptable candidate for outpatient joint program from anesthesia standpoint pending surgeon's office assessment that patient is motivated, has good support and completes [facility] preop requirements. Chart Review Chart Review: Acceptable Risk for Surgery and Patient seen in Pre Admission Testing Teaching & Discussion Pre-Anesthesia Teaching/Discussion Notes: Instructed NPO after midnight before surgery,except medications with 15 cc of water. Medication instructions provided according to the PAT guidelines. History Surgery Operation Date: 10/28/23 08:50 Proposed Procedures p Right Total Knee Arthroplasty - Hermes William MD Height/Weight Height: 6 ft 1.5 in Weight: 116.8 kg Allergies Allergy/AdvReac Type Severity Reaction Status Date / Time Iodinated Contrast Media Allergy Unknown Mother and Verified 10/14/23 13:06 father were allergic Ada AdvReac Unknown Eye Uncoded 10/14/23 13:06 irritation Medications Home Medications Medication Instructions Recorded Confirmed Last Taken aspirin 81 mg tablet,delayed 81 mg PO DAILY 06/01/20 10/11/23 Unknown release (Tessa Low Dose Aspirin) cetirizine 10 mg tablet (Zyrtec) 10 mg PO DAILY PRN Allergy Symptoms 06/01/20 10/11/23 06/01/20 telmisartan 40 mg tablet 40 mg PO QAM 06/01/20 10/11/23 06/01/20 meclizine 12.5 mg tablet 25 mg (2 x 12.5 mg) PO TID PRN 06/02/20 10/11/23 Unknown dizziness #20 tabs atorvastatin 40 mg tablet 40 mg PO HS 10/11/23 10/11/23 Unknown melatonin 10 mg tablet 10 mg PO HS PRN Sleep 10/11/23 10/11/23 Unknown sildenafil 20 mg PO DIRECTED PRN Sexual 10/18/23 10/18/23 Unknown Activity Past Medical History Medical History History of anemia History of COVID-19 04/2022- resolved Seasonal allergies Right knee DJD Hypercholesterolemia Dyslipidemia Hypertension Kidney stone hx Exercise / Class Metabolic Activity II 4-5 Yardwork/Stairs/Walk up hill (one FS (no CP, no SOB)) Past Family History Family History Other No family history of adverse response to anesthesia Past Surgical History Surgical History History of lithotripsy Hx of colonoscopy Hx of arthroscopic knee surgery Left History of shoulder surgery right History of total left knee replacement 02/20/2013 Past Anesthesia History No Family Hx of Anesthesia Complications and Other ("Awareness" towards end of Left TKA) History of PONV No Hx of PONV and No Hx of Motion Sickness Social History Smoking Status: Former smoker Do You Dip or Chew Tobacco: No Smoking End Date: Quit 37 years ago Hx Alcohol Use: Yes Alcohol type: beer alcohol intake frequency: a few times a week Hx Substance Use: No substance use type: does not use Review of Systems Patient denies chest pain, shortness of breath, dyspnea on exertion, fever, chills, cough, wheezing, palpitations. Physical Exam Vital Signs VITALS BP 129/74 P 64 TEMP 98.2 SP02 95%Ra RESP 16 PHYSICAL Full cervical extension range of motion. Full TMJ range of motion. TMD 3.5 finger breaths Mallampati Score 2 Dentition: upper full plate, lower missing molars Lungs: clear throughout to auscultation Cardiac: regular rate and rhythm, no murmurs noted Spine: normal Carotid arteries: negative bruit Extremities: no LE edema Lab Results Anesthesia Preop Results Results Anesthesia Widget: WBC 5.18 K/ul (4.8-10.8) 10/18/23 Hgb 12.8 g/dl (14.0-18.0) L 10/18/23 Hct 37.6 % (42.0-52.0) L 10/18/23 Plt 222 K/uL (130-400) 10/18/23 PT 11.5 Seconds (9.0-12.0) 10/18/23 PTT 25.8 Seconds (21.0-31.0) 10/18/23 INR 1.1 (0.9-1.1) 10/18/23 Blood Type O Negative 10/18/23 Antibody Screen NEGATIVE 10/18/23 Testing Laboratory Results 09/20/23 SODIUM 142 POTASSIUM 4.3 CHLORIDE 109 CO2 29 BUN 20 CREATININE 0.76 GLUCOSE 110 HGBA1C 6.1% Electrocardiogram Date: 10/18/23 NSR at 60bpm. "Normal ECG" Chest X-Ray Date: 10/18/23 FINDINGS: No lines and tubes are seen. The cardiomediastinal silhouette is normal. The lungs are clear. No evidence of pleural effusion or pneumothorax. IMPRESSION: No acute chest disease.
[~2023-10-28 09:45] MED LIST changes: +ACETAMINOPHEN 500 MG TAB PO SCH; -ASPI-319 PO; +BUPIVACAINE 0.5 % 5 MG/1 ML PF 10ML VIAL ONE; +BUPIVACAINE LIPOSOME/PF 266 MG, BUPIVACAINE/EPINEPHRINE 50 ML, SODIUM CHLORIDE 0.9% PF ... INFIL SCH; +CeleBREX 200 MG CAP PO SCH; +FAMOTIDINE 20 MG TAB PO SCH; +LR 500ML BOLUS, THEN 15ML/HR IV SCH; +LR 60ML/HR IV SCH; +METOCLOPRAMIDE HCL 10 MG TABLET PO SCH; -OXYC-57 PO; +ROPIVACAINE 0.5% 5 MG/ML 30 ML VIAL ONE; -SIMV20TA2 PO; +Scopolamine 1 MG TDSY TD SCH; -TAMS0.4C38 PO; -TELM40TA PO; +TRANEXAMIC ACID 1,000 MG **IV Intra-op IV SCH; +ceFAZolin 2000MG 2,000 MG/15 ML SYR IV SCH; +dexAMETHasone**PF** 10 MG/ML VIAL IV SCH
--- NOTE | 2023-10-28 09:51 | History & Physical Bridge Note ---
Date of Service October 28, 2023 History & Physical Bridge Note I have examined the patient, reviewed the History & Physical and in the interval since the performance of the History & Physical I have noted the following changes of clinical significance: no changes noted
[2023-10-28] MEDS ORDERED: ePHEDrine sulfate 50 MG/ML AMP IV PRN (10:52)
[2023-10-28] MEDS ORDERED: fentaNYL citrate PF 100 MCG/2 ML VIAL IV PRN (10:52)
[2023-10-28] MEDS ORDERED: ATROPINE SULFATE 0.1 MG/ML 10ML SYR IV PRN (10:52)
[2023-10-28] MEDS ORDERED: ONDANSETRON INJ 2 MG/ML 2 ML VIAL IV PRN ×2 (10:52→16:20)
[2023-10-28] MEDS ORDERED: PROPOFOL IV EMULSION 10 MG/ML 20 ML VIAL IV ONE (10:53)
[2023-10-28] MEDS ORDERED: ONDANSETRON INJ 2 MG/ML 2 ML VIAL ONE (10:53)
[2023-10-28] MEDS ORDERED: DEXAMETHASONE SOD INJ 4 MG/ML VIAL ONE (10:53)
[2023-10-28] MEDS ORDERED: MIDAZOLAM HCL 1 MG/ML 2ML VIAL ONE (10:53)
[2023-10-28] MEDS ORDERED: fentaNYL citrate PF 100 MCG/2 ML VIAL ONE (10:53)
[2023-10-28] MEDS ORDERED: LIDOCAINE 2% 2 ML VIAL/AMP(20MG/ML) INFIL ONE (11:01)
[2023-10-28] MEDS ORDERED: SODIUM CHLORIDE 0.9% PF 50 ML VIAL ONE (11:52)
[2023-10-28] MEDS ORDERED: BUPIVACAINE/EPINEPHRINE 0.25% 1:200,000 30 ML VIAL ONE (11:52)
[2023-10-28] MEDS ORDERED: BUPIVACAINE LIPOSOME 1.3% 266 MG/20 ML VIAL ONE (11:53)
[2023-10-28] MEDS ORDERED: PHENYLEPHRINE 100MCG/ML 10ML SYR IV ONE (12:48)
[2023-10-28] MEDS ORDERED: KETOROLAC 30 MG/ML VIAL ONE (12:48)
--- NOTE | 2023-10-28 14:08 | Operative Report ---
PG Post Operative Report Pre & Post Diagnosis Operation Date: 10/28/23 11:10 Pre-Op Diagnosis: Right Knee Advanced Degenerative Joint Disease Post-Op Diagnosis: Right Knee Advanced Degenerative Joint Disease I identified the patient and participated in the time-out.: Yes Procedure Operation Date: 10/28/23 11:10 Actual Procedures p Right Total Knee Arthroplasty(Right) - Hermes William MD Surgeon Hermes William MD Mold Maker Teodoro Garcia PA-C Estimated Blood Loss 100 Findings Consistent with Post-Op Diagnosis Operative findings reveal advanced right knee DJD. Had extensive grade 4 [id number] disease the medial and patellofemoral compartments. Diarrhea varus deformity to his knee. Moderate-sized knee effusion. Specimens Right knee sent for pathology. Anesthesia Type Spinal MAC Complications none Disposition Accompanied Patient To Recovery: No Indications Patient is a 68-year-old gentleman is had a long history of knee problems. He had his left knee replaced about 10 years ago. Over the past several years she developed increased pain discomfort in his right knee. Failed conservative measures. X-rays show advanced right knee arthritis. He elected proceed with surgical treatment. Description of Procedure Operative implants consist of: 1 Biomet Vanguard size 72.5 right posterior stabilized femoral component. 2. Size 79 tibial tray. 3. 12 mm post stabilized polyethylene insert. 4. 34 x 8-1/2 all poly patella. The patient was taken the operating, identified, and placed on the operating table in the supine position but all contact areas were appropriately padded. IV antibiotics tried by anesthesia team. A spinal anesthetic and adductor canal block had provided in the holding area. Right thigh turn was then placed. The right lower extremity was then prepped and draped in usual sterile fashion. The right leg was elevated exsanguinated with use of an Esmarch and the turn was placed at 300 mmHg. An anterior approach to the right knee was then performed to longitudinal incision centered over the patella. Sharp dissection was carried through subcutaneous tissue down the extensor mechanism. Medial parapatellar patellar arthrotomy was then performed. Subperiosteal dissection was carried out medially. The fat pad was resected from Neath patella tendon. The lateral patellofemoral ligament was released. Patella subluxated laterally and the knee was flexed. The ACL and PCL were then released from distal femur. The tibia was then subluxated anteriorly. The external tibial alignment jig was then placed the interface the tibia and adjusted 14 mm medially. Proximal tibial cut was made to remove about a millimeter or 2 of bone from the most deficient aspect medial tibial plateau. Some osteophytes taken off medial and posterior medially. Tibia was sized to a size 79. Attention drawn the femur. The distal femur was then with a sharp drill. Intramedullary canal was suction. A right 6 degree valgus cutting guide was placed. The distal femoral cutting block was pinned in place. Distal femoral cut was made to take an additional 3 mm of bone off distal femur. The femur was then sized to a size 72.5. The AP cutting block was pinned parallel to the epicondylar axis which was 4 degrees of external rotation. Anterior cut, anterior chamfer, posterior cut, posterior chamfer cuts were made. The box cutting guide was placed in a just slightly laterally. The box cut was made. The knee was flexed. The remnants of the medial and lateral menisci were excised. The osteophytes taken off the poste rior aspect the femur. A trial femoral component was placed. The tibial tray was pinned in maximum external rotation and the drill and stem punch used to create defect in proximal tibia for the tibial tray. Knee was then trialed and the 12 mm insert fit most appropriately. Attention drawn the patella. Patella was cleaned of all soft tissues. Patella thickness measured 26 mm in thickness was cut down to 15 to a size a size 34 patella. The lug holes were drilled for a 34 patella. The lateral osteophytes removed. Patella button was placed. Knee was taken through range of motion patella tracked nicely with no thumbs test. Attention drawn to placing permanent components. Nupathe all trial components were removed. Bone plug was placed in the distal femur limit blood loss. Double batch Palacos G cement was mixed. Biomet Vanguard size 72.5 right Po stabilized femoral component, size 79 tibial tray, a 12 mm post stabilized polyethylene insert, and a 34 x 8-1/2 all poly patella then cemented in place. The knee was brought out into full extension till cement hardened. Final cement check was then performed. The pericapsular tissues were injected total 100 cc of combination of 20 cc of Exparel, 30 cc normal saline, 50 cc of quarter percent Marcaine with epinephrine. Patient did receive 1 g tranexamic acid. The tourniquet was let down for final tourniquet time of 61 minutes. Hemostasis assured use electrocautery. Extensor Meclomen closed with combination 1 PDS suture #1 Vicryl suture in a [id number] fashion. Extensor mechanism checked found to be intact and subcutaneous tissues then closed with 2 Dexon suture in a buried interrupted fashion skin was closed skin jolie. Leg was then cleaned and dried and sterile dressing was Xeroform, 4 fours, sterile cast padding, Ron bandage applied. Patient then transferred to the recovery room in stable condition. Patient tolerated procedure well and there were no complications. Teodoro Garcia, my physician event marketing assistant, was present for the entire procedure. His assistance was essential and required for appropriate patient positioning, prepping and draping, surgical exposure, performing the technical details of the operation, placement the implants, closure of the wound, and placement of the sterile bandage. I attest to the content of the Intraoperative Record and any orders documented therein. Any exceptions are noted below.
--- NOTE | 2023-10-28 14:18 | XRay Report ---
TWO VIEWS RIGHT KNEE CLINICAL HISTORY: Postoperative examination. FINDINGS: AP and crosstable lateral portable views of the right knee are obtained. A right knee arthr oplasty is in near anatomic alignment. There has been undersurface remodeling of the patella. No acut e fracture is seen. There are expected postoperative changes around the knee including skin clips, so ft tissue edema, and subcutaneous gas. IMPRESSION: Expected postoperative changes status post right knee arthroplasty. No acute fracture is seen. ACT 112: Negative or not required by law. Electronically signed by: Mayco Jon M.D. 10/28/2023 2:17 PM
--- NOTE | 2023-10-28 15:05 | Anesthesiology Progress Note ---
Date of Service October 28, 2023 Anesthesia Post Procedure Vital Signs Vital Signs: Temp Pulse Pulse Resp BP BP Pulse Ox 10/28/23 14:55 64 20 117/69 97 10/28/23 14:45 53 L 18 123/61 97 10/28/23 14:35 57 L 18 119/68 97 10/28/23 14:25 62 18 126/70 97 10/28/23 14:15 58 L 14 116/61 95 10/28/23 14:05 96.8 F L 67 14 125/63 98 10/28/23 10:22 98.1 F 71 18 157/83 H 96 O2 Del Method O2 Flow Rate 10/28/23 14:55 Room Air 10/28/23 14:45 Room Air 10/28/23 14:35 Room Air 10/28/23 14:25 Room Air 10/28/23 14:15 Room Air 10/28/23 14:05 Oxymask 4 10/28/23 10:22 Room Air Transfer of Care Handoff Completed per policy Notes Mental Status: alert / awake / arousable and participated in evaluation Patient Amnestic to Procedure: Yes Nausea / Vomiting: adequately controlled Pain: adequately controlled Airway Patency, RR, SpO2: stable & adequate BP & HR: stable & adequate Hydration State: stable & adequate Anesthetic Complications: no major complications apparent and Pt Satisfied with anesthetic care
[2023-10-28] MEDS ORDERED: CETIRIZINE HCL 10 MG TABLET PO PRN (16:20)
[2023-10-28] MEDS ORDERED: MECLIZINE HCL 25 MG TAB PO PRN (16:20)
[2023-10-28] MEDS ORDERED: HYDROmorphone INJ 0.5 MG/0.5 ML SYR IV PRN (16:20)
[2023-10-28] MEDS ORDERED: NALOXONE HCL 0.4 MG/1 ML VIAL/CARP IV PRN (16:20)
[2023-10-28] MEDS ORDERED: METOCLOPRAMIDE HCL INJ 5 MG/ML 2 ML VIAL IV PRN (16:20)
[2023-10-28] MEDS ORDERED: bisacodyL 10 MG SUPP PR PRN (16:20)
[2023-10-28] MEDS ORDERED: ALUMINUM/MAGNESIUM SUSP 30 ML UDC PO PRN (16:20)
[2023-10-28] MEDS ORDERED: NON-FORMULARY MEDICATION (Sildenafil 20 MG) PO PRN (16:20)
[2023-10-28] MEDS ORDERED: MELATONIN 3 MG TAB PO PRN (16:20)
[2023-10-28] MEDS ORDERED: MAGNESIUM HYDROXIDE SUSP 30 ML UDC PO PRN (16:20)
[2023-10-28] MEDS: Scopolamine CHECK PATCH PLACEMENT SCH ×2 (16:47→23:43)
[2023-10-28] MEDS: SODIUM CHLORIDE 0.9% 1,000 ML IV SCH ×2 (16:47→22:55)
[2023-10-28] MEDS: ASCORBIC ACID 500 MG TAB PO SCH (17:27)
[2023-10-28] MEDS: ACETAMINOPHEN 500 MG TAB PO SCH ×2 (17:28→23:01)
[2023-10-28] MEDS: KETOROLAC TROMETHAMINE 15 MG/ML VIAL IV SCH ×2 (17:29→23:01)
[2023-10-28] MEDS ORDERED: TRANEXAMIC ACID / 0.7% NACL 1,000 MG/100 ML BAG IV SCH (20:00)
[2023-10-28] MEDS: SENNA 8.6 MG TAB PO SCH (20:33)
[2023-10-28] MEDS: DOCUSATE SODIUM 100 MG CAP PO SCH (20:33)
[2023-10-28] MEDS: ASPIRIN 81 MG ECTAB PO SCH (20:33)
[2023-10-28] MEDS: ceFAZolin 2000MG 2,000 MG/15 ML SYR IV SCH (20:45)
[2023-10-28] MEDS ORDERED: ATORVASTATIN 40 MG TAB PO SCH (21:00)
[2023-10-28] MEDS ORDERED: SENNA 8.6 MG TAB PO SCH (21:00)
[2023-10-28] MEDS: oxyCODONE HCL IR 5 MG TAB (IMMEDIATE RELEASE) PO PRN (21:03)
[2023-10-28] MEDS ORDERED: ZOLPIDEM TARTRATE 5 MG TAB PO ONE (21:43)
[2023-10-29] MEDS: ceFAZolin 2000MG 2,000 MG/15 ML SYR IV SCH (03:35)
[2023-10-29] MEDS: KETOROLAC TROMETHAMINE 15 MG/ML VIAL IV SCH (06:10)
[2023-10-29] MEDS: ACETAMINOPHEN 500 MG TAB PO SCH (06:10)
[2023-10-29] MEDS: SODIUM CHLORIDE 0.9% 1,000 ML IV SCH (06:10)
[2023-10-29 07:24] LABS: Hematocrit (blood only) 31.3 % (42.0-52.0); Hemoglobin 10.7 g/dl (14.0-18.0); Mean Corpuscular Hemoglobin 32.6 pg (25.0-34.0); Mean Corpuscular Hgb Conc 34.2 g/dL (32.0-36.0); Mean Corpuscular Volume 95.4 fL (80.0-100.0); Mean Platelet Volume 8.8 fL (9.4-12.4); Platelet Count 216 K/uL (130-400); RDW Coefficient of Variation 11.7 % (11.5-14.5); RDW Standard Deviation 40.7 fL (36.4-46.3); Red Blood Count 3.28 M/uL (4.70-6.10); White Blood Count 14.57 K/ul (4.8-10.8)
[2023-10-29 07:43] LABS: BUN Creatinine Ratio 29.6 (10-20); Creatinine Clr Calc Pharmacy 115.8 ml/min; Est GFR (African American) 105.1 ml/min; Est GFR (Non-African American) 90.7 ml/min; Potassium 4.1 mmol/L (3.5-5.1)
--- NOTE | 2023-10-29 07:44 | Surgery Progress Note ---
Date of Service October 29, 2023 Assessment & Plan (1) Status post right knee replacement: Plan: 68-year-old gentleman postop day 1 from right knee replacement doing well. Pain is controlled. He is neurologically intact. Hoping to go home today. Plan: 1. DVT prophylaxis including thigh-high teds, SCDs, aspirin twice a day. 2. PT/OT. Weight-bear as tolerated right total knee protocol. 3. Pain control doing okay with current pain regimen. 4. Disposition plan to discharge home with some home health likely later today. Admission and Anticipated Discharge Date Admission Date: October 28, 2023 Subjective 68-year-old gentleman postop day 1 from a right knee replacement. He is doing pretty well. Had a good night. Pain is controlled. No chest pain or shortness of breath. Not feeling dizzy or lightheaded. Physical Exam Physical Exam: Physical exam shows a pleasant middle-age male. Sitting up in bed looks pretty comfortable this morning. Examination of the right leg reveals leg to be well aligned. Dressings clean dry and intact. He can dorsiflex and plantarflex his foot appropriately. He can do a pretty good straight leg raise with some effort. Respiratory: normal respiratory effort, lungs clear to auscultation Cardiovascular: RRR, no murmur, no edema Gastrointestinal (Abdomen): normal bowel sounds, soft, nontender, no hepatosplenomegaly Results & Data Vital Signs (Past 12 Hours) Vital Signs Temp Pulse Resp BP Pulse Ox O2 Del Method 10/29/23 03:00 36.6 C 66 18 114/62 94 Room Air 10/28/23 22:57 36.6 C 66 18 118/53 L 94 Room Air Laboratory Results Hemoglobin is 10.7. Hematocrit is 31.3. Electrolytes are pending PG Care Time/CCT Total # of Minutes Spent Total Time Spent with Patient: Total time spent is greater than 50% in coordination of care (as documented) at patient's floor/unit and/or counseling patient: Coding Level of Care Code 52372 Post Operative Follow-Up Diagnoses Status post right knee replacement Z96.651
[2023-10-29] MEDS: SENNA 8.6 MG TAB PO SCH (07:59)
[2023-10-29] MEDS: ASCORBIC ACID 500 MG TAB PO SCH (07:59)
[2023-10-29] MEDS: DOCUSATE SODIUM 100 MG CAP PO SCH (07:59)
[2023-10-29] MEDS: ASPIRIN 81 MG ECTAB PO SCH (07:59)
[2023-10-29] MEDS ORDERED: dexAMETHasone 10 MG in SYRINGE 0 ML IV SCH (08:00)
[2023-10-29] MEDS: Scopolamine CHECK PATCH PLACEMENT SCH (08:08)
[2023-10-29] MEDS ORDERED: TELMISARTAN 40 MG TAB PO SCH (09:00)
[2023-10-29] MEDS ORDERED: TAMSULOSIN HCL 0.4 MG CAP PO SCH (09:00)
[2023-10-29] MEDS ORDERED: MULTIVITAMIN TAB PO SCH (09:00)
[2023-10-29] MEDS ORDERED: LOSARTAN POTASSIUM 50 MG TAB PO SCH (09:30)
[2023-10-29] MEDS: oxyCODONE HCL IR 5 MG TAB (IMMEDIATE RELEASE) PO PRN (10:44)
--- NOTE | 2023-11-01 11:45 | Discharge Summary ---
Date of Service November 01, 2023 Discharge Data Procedures Performed Operation Date: 10/28/23 11:10 Actual Procedures p Right Total Knee Arthroplasty(Right) - Hermes William MD Hospital Course (1) Status post right knee replacement: This is a 68 year old patient admitted on 10/28/23 and underwent total knee arthroplasty. He tolerated the procedure well and there were no complications. Transferred to the PACU post op and later to the orthopedic floor for further care. He was given ancef for antibiotic prophylaxis. He was also given ANNIKA stockings, SCDs, and aspirin for DVT prophylaxis. Hemoglobin, hematocrit, and vital signs were monitored during his hospital stay and remained stable. Did not require any blood transfusions. There were no complications during his hospital stay. By post op day #1 the patient was tolerating a regular diet, pain was reasonably controlled with oral pain medicine, and he was participating in physical therapy. On post op day #1 the patient was discharged home and set up with home health care. He was given printed discharge instructions including prescriptions for extra strength tylenol, aspirin, cefadroxil, ketorolac, zofran, senokot, flomax, and oxycodone. Continue physical therapy, weight bearing as tolerated. Continue ANNIKA stockings. Follow up approximately 2 weeks post op or sooner if there are problems or concerns. Coding Level of Care Code None Diagnoses Status post right knee replacement Z96.651
== END 2023-10-29 11:38 | disposition home health service (06) ==
LOC: ASU 09:45 → 3W 09:45